=== PATIENT | female | born 1960 | race Caucasian/White ===

== ENCOUNTER 2017-10-27 19:42 | Emergency (ER) | payer BC, OTHER ==
[~2017-10-27] VITALS: Ht 160 cm; Wt 58.7 kg
[~2017-10-27 19:42] MED LIST: AMBIEN10 MG PO; DEXILANT60 MG PO; METOPROLOL PO; PROBIOTIC PO; SINGULAIR10 MG PO; TRAZODONE HCL50 MG PO; TYLENOL EXTRA500 MG PO; WELLBUTRIN XL300 MG PO; XANAX0.25 MG PO
[2017-10-27] MEDS ORDERED: SODIUM CHLORIDE 0.9% 1000 ML BAG IV STA (20:15)
[2017-10-27] MEDS ORDERED: KETOROLAC TROMETHAMINE 30 MG/ML VIAL IV STA (20:16)
--- NOTE | 2017-10-27 21:38 | Diagnostic Imaging Report ---
EXAM: CT ABD/PEL WITH CONTRAST-HOPD DATE: 10/27/2017 12:00 AM INDICATION: Left lower abdominal pain COMPARISON: None TECHNIQUE: The abdomen and pelvis were scanned using a multidetector helical scanner. Coronal and sagittal reformations were obtained. IV Contrast: 100 ml Isovue 300/370 FINDINGS: LOWER THORAX: No consolidations LIVER/BILIARY: No masses. No ductal dilatation. GALLBLADDER: Unremarkable SPLEEN: Incidental calcified granulomas. PANCREAS: Unremarkable ADRENALS: No nodules KIDNEYS: Multifocal left renal scarring. No hydronephrosis. GI TRACT: Diverticulosis with mild inflammatory changes about the proximal sigmoid colon. Moderate stool burden. Clips in the right lower quadrant likely from prior appendectomy. VESSELS: Unremarkable PERITONEUM/RETROPERITONEUM: No free air or fluid LYMPH NODES: Prominent inguinal lymph nodes, likely reactive. REPRODUCTIVE ORGANS/BLADDER: Hysterectomy. Unremarkable bladder. SOFT TISSUES: Unremarkable BONES: No suspicious bone lesions. IMPRESSION: Acute uncomplicated sigmoid diverticulitis. Signed by: Dr Sneha Louis MD on 10/27/2017 9:34 PM
[2017-10-27 22:17] VITALS: BP 120/70
[2017-10-28] MEDS ORDERED: OLANZAPINE2.5 MG PO (11:05)
[2017-10-28] MEDS ORDERED: LEVOFLOXACIN750 MG PO (11:05)
[2017-10-28] MEDS ORDERED: ZOLPIDEM TARTRAT5 MG PO (11:05)
[2017-10-28] MEDS ORDERED: LAMOTRIGINE200 MG PO (11:05)
[2017-10-28] MEDS ORDERED: METRONIDAZOLE500 MG PO (11:05)
[2017-10-28] MEDS ORDERED: SERTRALINE HCL100 MG PO (11:05)
[2017-10-28] MEDS ORDERED: ALPRAZOLAM0.25 MG PO (11:05)
== END 2017-10-27 22:19 | disposition home or self-care (01) ==
LOC: FSED 19:42
DX: R10.32 Left lower quadrant pain (principal); K57.32 Diverticulitis of large intestine without perforation or abscess without bleeding; F32.9 Major depressive disorder, single episode, unspecified
CPT/HCPCS: 74177; 80053; 80307; 81003; 85025; 99283; J1885; J7030

== ENCOUNTER → 2020-02-15 | Day surgery (SDC) | payer BC, OTHER ==
[2020-02-12 08:36] LABS: BASOPHILS # (AUTO) 0.1 (0.0-0.1); EOSINOPHILS # (AUTO) 0.1 (0.0-0.4); EOSINOPHILS % 2.7 % (0.0-6.0); HEMATOCRIT 40.5 % (34.2-44.1); HEMOGLOBIN 13.1 g/dL (12.0-16.0); LYMPHOCYTES # (AUTO) 1.8 (1.0-3.2); LYMPHOCYTES % 34.8 % (18.0-39.1); MEAN CORPUSCULAR HEMOGLOBIN 29.6 pg (28-32); MEAN CORPUSCULAR HGB CONC 32.3 g/dL (31-35); MEAN CORPUSCULAR VOLUME 91.6 fL (81-99); MONOCYTES # (AUTO) 0.4 (0.2-0.8); MONOCYTES % 7.9 % (4.4-11.3); NEUTROPHILS # (AUTO) 2.8 (2.1-6.9); NEUTROPHILS % 53.2 % (38.7-80.0); PLATELET COUNT 227 x10e3/uL (140-360); RED BLOOD COUNT 4.42 x10e6/uL (3.6-5.1); RED CELL DISTRIBUTION WIDTH 12.8 % (11.7-14.4)
[2020-02-12 09:10] LABS: ANION GAP 15.6 mmol/L (8-16); BLOOD UREA NITROGEN 11 mg/dL (7-26); BUN/CREATININE RATIO 13 (6-25); CALCIUM 9.3 mg/dL (8.4-10.2); CARBON DIOXIDE 25 mmol/L (22-29); CHLORIDE 105 mmol/L (98-107); CREATININE, SERUM 0.82 mg/dL (0.57-1.11); EST GLOMERULAR FILTRATION RATE > 60 ML/MIN (60-); GLUCOSE 88 mg/dL (74-118); POTASSIUM 3.6 mmol/L (3.5-5.1); SODIUM 142 mmol/L (136-145)
[~2020-02-15] MED LIST changes: +ALPRAZOLAM0.25 MG PO; +BUPIVACAINE HCL 0.5% INJ 30 ML VIAL INJ ONE; +DEXAMETHASONE SOD PHOS INJ 4 MG/ML VIAL ONE; +EPHEDRINE SULFATE INJ 50 MG/ML VIAL ONE; +FENTANYL CITRATE/PF 100MCG/2 ML INJ ONE; +LAMOTRIGINE200 MG PO; +LEVOFLOXACIN750 MG PO; +LIDOCAINE HCL 2% LOCAL INJ 5 ML SDV VIAL INJ ONE; +METRONIDAZOLE500 MG PO; +MIDAZOLAM HCL 2 MG/2 ML VIAL ONE; +NEOSTIGMINE 1 MG/ML 10ML VIAL ONE; +OLANZAPINE2.5 MG PO; +ONDANSETRON HCL INJ 2MG/ML 2ML 2 MG/ML VIAL ONE; +PROPOFOL IV EMULSION 10 MG/ML 20 ML VIAL ONE; +SEROQUEL100 MG PO; +SERTRALINE HCL100 MG PO; +SEVOFLURANE INHAL SOLN 250 ML PEN BTL ONE; +WELLBUTRIN SR150 MG PO; +ZOLPIDEM TARTRAT5 MG PO
[2020-02-15] MEDS: CLINDAMYCIN PHOS 900MG/ 50ML 50 ML IV ONE (06:32)
[2020-02-15 09:20] VITALS: BP 110/64
== END | disposition home or self-care (01) ==
LOC: OR 05:33
PROVIDERS: ATTEND Podiatrist Foot Surgery
DX: M20.11 Hallux valgus (acquired), right foot (principal); M54.9 Dorsalgia, unspecified; F41.9 Anxiety disorder, unspecified; Z88.0 Allergy status to penicillin; Z01.810 Encounter for preprocedural cardiovascular examination; Z01.812 Encounter for preprocedural laboratory examination; Z01.818 Encounter for other preprocedural examination; Z20.828 Contact with and (suspected) exposure to other viral communicable diseases
CPT/HCPCS: 36415; 71046; 76000; 80048; 85025; 93005; C1713; J1100; J2001; J2250; J2405; J2710; J3010; U0002

== ENCOUNTER → 2020-06-12 | Day surgery (SDC) | payer BC, OTHER ==
[~2020-06-12] MED LIST changes: -BUPIVACAINE HCL 0.5% INJ 30 ML VIAL INJ ONE; +BUSPIRONE HCL10 MG PO; -DEXAMETHASONE SOD PHOS INJ 4 MG/ML VIAL ONE; -EPHEDRINE SULFATE INJ 50 MG/ML VIAL ONE; +FEROSUL325 MG PO; +HYDROCODON-ACE1 EA11 PO; +HYOSCYAMINE SULFATE 0.5 MG/ML INJ ONE; +LEVOFLOXACIN250 MG PO; +LIALDA1.2 GM PO; -NEOSTIGMINE 1 MG/ML 10ML VIAL ONE; -ONDANSETRON HCL INJ 2MG/ML 2ML 2 MG/ML VIAL ONE; +PANTOPRAZOLE 40 MG 10ML VIAL ONE; -SEVOFLURANE INHAL SOLN 250 ML PEN BTL ONE; +TEMAZEPAM15 MG PO; +VITAMIN B-121000 MCG IM
[2020-06-12 16:18] LABS: WBC,FECAL (FECAL LACTOFERRIN) NEGATIVE (NEGATIVE)
[2020-06-12 16:50] VITALS: BP 118/74
[2020-06-13 08:41] LABS: C DIFFICILE TOXIN A&B AMP PROB NEGATIVE (NEGATIVE)
== END | disposition home or self-care (01) ==
LOC: OR 12:40
PROVIDERS: ATTEND Internal Medicine Gastroenterology
DX: K52.9 Noninfective gastroenteritis and colitis, unspecified (principal); Z86.010 Personal history of colon polyps; K29.70 Gastritis, unspecified, without bleeding; K20.90 Esophagitis, unspecified without bleeding; K57.30 Diverticulosis of large intestine without perforation or abscess without bleeding; K62.89 Other specified diseases of anus and rectum; K21.9 Gastro-esophageal reflux disease without esophagitis; K64.8 Other hemorrhoids; I10 Essential (primary) hypertension; N28.89 Other specified disorders of kidney and ureter; F41.9 Anxiety disorder, unspecified; F32.9 Major depressive disorder, single episode, unspecified; Z88.0 Allergy status to penicillin; Z01.810 Encounter for preprocedural cardiovascular examination; Z01.812 Encounter for preprocedural laboratory examination; Z20.822 Contact with and (suspected) exposure to COVID-19; Z87.19 Personal history of other diseases of the digestive system
CPT/HCPCS: 43239; 45380; 83630; 83993; 87045; 87177; 87328; 87493; 93005; C9113; J1980; J2001; J2250; J2704; J3010; U0002; 45378

== ENCOUNTER 2020-06-13 16:46 | Inpatient (IN) | payer BC, OTHER ==
[~2020-06-13] VITALS: Ht 160 cm; Wt 53.5 kg
[~2020-06-13 16:46] MED LIST changes: -FENTANYL CITRATE/PF 100MCG/2 ML INJ ONE; -FEROSUL325 MG PO; -HYDROCODON-ACE1 EA11 PO; -HYOSCYAMINE SULFATE 0.5 MG/ML INJ ONE; -LEVOFLOXACIN250 MG PO; -LIALDA1.2 GM PO; -LIDOCAINE HCL 2% LOCAL INJ 5 ML SDV VIAL INJ ONE; -MIDAZOLAM HCL 2 MG/2 ML VIAL ONE; -PANTOPRAZOLE 40 MG 10ML VIAL ONE; -PROPOFOL IV EMULSION 10 MG/ML 20 ML VIAL ONE; -VITAMIN B-121000 MCG IM
[2020-06-13] MEDS ORDERED: ONDANSETRON HCL INJ 2MG/ML 2ML 2 MG/ML VIAL IV STA (16:58)
[2020-06-13] MEDS ORDERED: MORPHINE SULFATE INJ 4 MG/ML INJ 1ML IV ONE ×2 (17:00→19:15)
[2020-06-13] MEDS ORDERED: MORPHINE SULFATE INJ 4 MG/ML INJ 1ML ONE ×2 (17:16→19:27)
[2020-06-13] MEDS ORDERED: ONDANSETRON HCL INJ 2MG/ML 2ML 2 MG/ML VIAL ONE (17:16)
[2020-06-13] MEDS ORDERED: SODIUM CHLORIDE 0.9% 1000ML 1,000 ML ONE ×3 (17:16→20:49)
[2020-06-13] MEDS ORDERED: SODIUM CHLORIDE 0.9% 1000ML 1,000 ML IV SCH (18:15)
[2020-06-13 18:35] LABS: BASOPHILS % 0.2 % (0.0-1.0); HEMATOCRIT 31.7 % (34.2-44.1); HEMOGLOBIN 10.3 g/dL (12.0-16.0); LYMPHOCYTES # (AUTO) 1.2 (1.0-3.2); LYMPHOCYTES % 10.1 % (18.0-39.1); MEAN CORPUSCULAR HEMOGLOBIN 29.7 pg (28-32); MEAN CORPUSCULAR HGB CONC 32.5 g/dL (31-35); MEAN CORPUSCULAR VOLUME 91.4 fL (81-99); MONOCYTES # (AUTO) 0.7 (0.2-0.8); MONOCYTES % 5.5 % (4.4-11.3); NEUTROPHILS # (AUTO) 10.3 (2.1-6.9); NEUTROPHILS % 83.6 % (38.7-80.0); PLATELET COUNT 167 x10e3/uL (140-360); RED BLOOD COUNT 3.47 x10e6/uL (3.6-5.1); RED CELL DISTRIBUTION WIDTH 13.2 % (11.7-14.4)
[2020-06-13] MEDS ORDERED: PIPER-TAZ 3.375 GM / NS 50ML IV ONE (19:45)
[2020-06-13] MEDS ORDERED: SODIUM CHLORIDE FLUSH 10 ML SYR INJ PRN (19:45)
[2020-06-13] MEDS ORDERED: LEVOFLOXACIN 500MG/D5W 100ML 100 ML IV ONE ×2 (20:00→20:45)
[2020-06-13] MEDS: SODIUM CHLORIDE 0.9% 1000ML 1,000 ML IV SCH (20:44)
[2020-06-13] MEDS ORDERED: METRONIDAZOLE 500MG/NS 100ML 100 ML IV SCH (22:00)
[2020-06-13] MEDS ORDERED: PIPER-TAZ 3.375 GM / NS 50ML IV SCH (22:00)
[2020-06-13 22:32] VITALS: BP 96/64
[2020-06-13] MEDS: MORPHINE SULFATE INJ 4 MG/ML INJ 1ML IV PRN (22:59)
[2020-06-13] MEDS: ONDANSETRON HCL INJ 2MG/ML 2ML 2 MG/ML VIAL IV PRN (23:28)
[2020-06-14] VITALS (8 sets, daily range): BP systolic 81–118; BP diastolic 52–70
[2020-06-14] MEDS ORDERED: SERTRALINE HCL 100 MG TAB PO STA (00:46)
[2020-06-14] MEDS ORDERED: BUSPIRONE HCL 10 MG TABLET PO STA (01:04)
[2020-06-14] MEDS ORDERED: QUETIAPINE FUMARATE 100 MG TAB PO STA (01:44)
[2020-06-14] MEDS: ONDANSETRON HCL INJ 2MG/ML 2ML 2 MG/ML VIAL IV PRN ×3 (03:05→23:10)
[2020-06-14] MEDS: MORPHINE SULFATE INJ 4 MG/ML INJ 1ML IV PRN ×2 (03:05→08:31)
[2020-06-14] MEDS: SODIUM CHLORIDE 0.9% 1000ML 1,000 ML IV SCH ×3 (03:45→15:27)
[2020-06-14 05:49] LABS: ALANINE AMINOTRANSFERASE 7 IU/L (0-55); ALBUMIN 2.7 g/dL (3.5-5.0); ALBUMIN/GLOBULIN RATIO 1.3 (0.8-2.0); ALKALINE PHOSPHATASE 67 IU/L (40-150); BLOOD UREA NITROGEN 8 mg/dL (7-26); BUN/CREATININE RATIO 11 (6-25); CALCIUM 7.8 mg/dL (8.4-10.2); CARBON DIOXIDE 28 mmol/L (22-29); CHLORIDE 109 mmol/L (98-107); CREATININE, SERUM 0.75 mg/dL (0.57-1.11); EST GLOMERULAR FILTRATION RATE > 60 ML/MIN (60-); GLUCOSE 101 mg/dL (74-118); SODIUM 143 mmol/L (136-145)
[2020-06-14] MEDS: METRONIDAZOLE 500MG/NS 100ML 100 ML IV SCH ×3 (05:58→18:15)
[2020-06-14] MEDS: SERTRALINE HCL 100 MG TAB PO SCH ×2 (07:50→09:20)
[2020-06-14 12:15] LABS: BASOPHILS % 0.3 % (0.0-1.0); EOSINOPHILS % 0.4 % (0.0-6.0); HEMATOCRIT 30.2 % (34.2-44.1); HEMOGLOBIN 9.7 g/dL (12.0-16.0); LYMPHOCYTES # (AUTO) 1.1 (1.0-3.2); LYMPHOCYTES % 11.1 % (18.0-39.1); MEAN CORPUSCULAR HGB CONC 32.1 g/dL (31-35); MEAN CORPUSCULAR VOLUME 93.5 fL (81-99); MONOCYTES # (AUTO) 0.4 (0.2-0.8); MONOCYTES % 4.2 % (4.4-11.3); NEUTROPHILS # (AUTO) 8.1 (2.1-6.9); NEUTROPHILS % 83.5 % (38.7-80.0); PLATELET COUNT 150 x10e3/uL (140-360); RED BLOOD COUNT 3.23 x10e6/uL (3.6-5.1); RED CELL DISTRIBUTION WIDTH 13.2 % (11.7-14.4)
[2020-06-14] MEDS ORDERED: SODIUM CHLORIDE 0.9% 250ML 250 ML ONE (12:36)
[2020-06-14] MEDS ORDERED: SODIUM CHLORIDE 0.9% 250ML 250 ML IV ONE (12:45)
[2020-06-14] MEDS: ACETAMINOPHEN 325 MG TAB PO PRN ×2 (13:04→19:40)
[2020-06-14] MEDS: HYDROMORPHONE 1MG/1ML INJ IV PRN ×3 (15:27→23:35)
[2020-06-14] MEDS: LEVOFLOXACIN 500MG/D5W 100ML 100 ML IV SCH (20:06)
[2020-06-14] MEDS ORDERED: SERTRALINE HCL 100 MG TAB PO SCH (21:00)
[2020-06-14] MEDS ORDERED: BUSPIRONE HCL 10 MG TABLET PO SCH (21:00)
[2020-06-14] MEDS: BUSPIRONE HCL 10 MG TABLET PO SCH (22:02)
[2020-06-14] MEDS: QUETIAPINE FUMARATE 100 MG TAB PO SCH (22:02)
[2020-06-15] VITALS (8 sets, daily range): BP systolic 88–134; BP diastolic 59–85
[2020-06-15] MEDS: METRONIDAZOLE 500MG/NS 100ML 100 ML IV SCH ×5 (00:28→23:44)
[2020-06-15] MEDS ORDERED: CHLORDIAZEPOXIDE/CLIDINIUM 1 CAP PO STA (01:28)
[2020-06-15] MEDS: SODIUM CHLORIDE 0.9% 1000ML 1,000 ML IV SCH ×4 (02:29→23:44)
[2020-06-15] MEDS: ONDANSETRON HCL INJ 2MG/ML 2ML 2 MG/ML VIAL IV PRN ×3 (03:07→17:12)
[2020-06-15] MEDS: HYDROMORPHONE 1MG/1ML INJ IV PRN ×3 (03:07→22:28)
[2020-06-15 07:03] LABS: BASOPHILS % 0.4 % (0.0-1.0); EOSINOPHILS # (AUTO) 0.3 (0.0-0.4); EOSINOPHILS % 6.6 % (0.0-6.0); HEMATOCRIT 29.9 % (34.2-44.1); HEMOGLOBIN 9.6 g/dL (12.0-16.0); LYMPHOCYTES % 21.2 % (18.0-39.1); MEAN CORPUSCULAR HGB CONC 32.1 g/dL (31-35); MEAN CORPUSCULAR VOLUME 93.4 fL (81-99); MONOCYTES # (AUTO) 0.3 (0.2-0.8); MONOCYTES % 5.3 % (4.4-11.3); NEUTROPHILS # (AUTO) 3.1 (2.1-6.9); NEUTROPHILS % 66.1 % (38.7-80.0); PLATELET COUNT 151 x10e3/uL (140-360)
[2020-06-15 07:31] LABS: ALANINE AMINOTRANSFERASE 7 IU/L (0-55); ALBUMIN 2.4 g/dL (3.5-5.0); ALBUMIN/GLOBULIN RATIO 1.2 (0.8-2.0); ALKALINE PHOSPHATASE 64 IU/L (40-150); ANION GAP 9.2 mmol/L (8-16); BLOOD UREA NITROGEN 6 mg/dL (7-26); BUN/CREATININE RATIO 8 (6-25); CALCIUM 7.3 mg/dL (8.4-10.2); CARBON DIOXIDE 24 mmol/L (22-29); CHLORIDE 113 mmol/L (98-107); CREATININE, SERUM 0.72 mg/dL (0.57-1.11); EST GLOMERULAR FILTRATION RATE > 60 ML/MIN (60-); GLUCOSE 96 mg/dL (74-118); POTASSIUM 3.2 mmol/L (3.5-5.1); SODIUM 143 mmol/L (136-145)
[2020-06-15] MEDS: SERTRALINE HCL 100 MG TAB PO SCH (08:49)
[2020-06-15] MEDS: CHLORDIAZEPOXIDE/CLIDINIUM 1 CAP PO SCH ×4 (08:49→21:39)
[2020-06-15 09:22] LABS: % IRON SATURATION 18 % (15-50); IRON 30 ug/dL (50-170); TOTAL IRON BINDING CAPACITY 164 ug/dL (261-478); TRANSFERRIN 117 mg/dL (180-382)
[2020-06-15] MEDS ORDERED: POTASSIUM CHLORIDE 10MEQ EA PO ONE ×2 (11:45→13:30)
[2020-06-15] MEDS ORDERED: FERROUS SULFATE 325 MG TAB PO SCH (13:00)
[2020-06-15] MEDS ORDERED: CYANOCOBALAMIN INJ 1,000 MCG/ML VIAL IM ONE (13:00)
[2020-06-15] MEDS ORDERED: ALPRAZOLAM 0.25 MG TAB PO PRN (16:15)
[2020-06-15] MEDS: BUSPIRONE HCL 10 MG TABLET PO SCH (21:39)
[2020-06-15] MEDS: LEVOFLOXACIN 500MG/D5W 100ML 100 ML IV SCH (21:39)
[2020-06-15] MEDS: QUETIAPINE FUMARATE 100 MG TAB PO SCH (21:39)
[2020-06-15] MEDS: TEMAZEPAM 15 MG CAP PO SCH (21:39)
[2020-06-16] VITALS (8 sets, daily range): BP systolic 107–132; BP diastolic 70–81
[2020-06-16 05:59] LABS: BASOPHILS % 0.8 % (0.0-1.0); EOSINOPHILS # (AUTO) 0.3 (0.0-0.4); EOSINOPHILS % 7.2 % (0.0-6.0); HEMATOCRIT 30.4 % (34.2-44.1); LYMPHOCYTES # (AUTO) 1.1 (1.0-3.2); LYMPHOCYTES % 29.5 % (18.0-39.1); MEAN CORPUSCULAR HEMOGLOBIN 30.3 pg (28-32); MEAN CORPUSCULAR HGB CONC 32.9 g/dL (31-35); MEAN CORPUSCULAR VOLUME 92.1 fL (81-99); MONOCYTES # (AUTO) 0.2 (0.2-0.8); MONOCYTES % 6.2 % (4.4-11.3); NEUTROPHILS # (AUTO) 2.2 (2.1-6.9); NEUTROPHILS % 55.8 % (38.7-80.0); PLATELET COUNT 187 x10e3/uL (140-360)
[2020-06-16] MEDS: SODIUM CHLORIDE 0.9% 1000ML 1,000 ML IV SCH ×4 (06:23→19:57)
[2020-06-16] MEDS: METRONIDAZOLE 500MG/NS 100ML 100 ML IV SCH ×3 (06:23→17:12)
[2020-06-16] MEDS: MESALAMINE 400 MG CAP PO SCH ×3 (06:23→22:13)
[2020-06-16 06:48] LABS: ALBUMIN 2.5 g/dL (3.5-5.0); ALBUMIN/GLOBULIN RATIO 1.2 (0.8-2.0); ALKALINE PHOSPHATASE 64 IU/L (40-150); ANION GAP 10.6 mmol/L (8-16); CALCIUM 7.8 mg/dL (8.4-10.2); CARBON DIOXIDE 25 mmol/L (22-29); CHLORIDE 114 mmol/L (98-107); CREATININE, SERUM 0.75 mg/dL (0.57-1.11); GLUCOSE 90 mg/dL (74-118); POTASSIUM 4.6 mmol/L (3.5-5.1); SODIUM 145 mmol/L (136-145)
[2020-06-16 07:10] LABS: BUN/CREATININE RATIO 7 (6-25)
[2020-06-16 07:11] LABS: EST GLOMERULAR FILTRATION RATE > 60 ML/MIN (60-)
[2020-06-16 07:12] LABS: ALANINE AMINOTRANSFERASE < 6 IU/L (0-55); BLOOD UREA NITROGEN < 5 mg/dL (7-26)
[2020-06-16] MEDS: CYANOCOBALAMIN INJ 1,000 MCG/ML VIAL IM SCH (08:18)
[2020-06-16] MEDS: CHLORDIAZEPOXIDE/CLIDINIUM 1 CAP PO SCH ×4 (08:18→20:19)
[2020-06-16] MEDS: SERTRALINE HCL 100 MG TAB PO SCH (08:18)
[2020-06-16] MEDS: HYDROMORPHONE 1MG/1ML INJ IV PRN ×3 (08:52→21:34)
[2020-06-16] MEDS: ONDANSETRON HCL INJ 2MG/ML 2ML 2 MG/ML VIAL IV PRN ×3 (08:52→20:15)
[2020-06-16] MEDS ORDERED: ALPRAZOLAM 0.25 MG TAB PO PRN (09:00)
[2020-06-16] MEDS: IRON SUCROSE 100 MG in SODIUM CHLORIDE 0.9% 100 ML 100 ML IV SCH (10:56)
[2020-06-16] MEDS: BUSPIRONE HCL 10 MG TABLET PO SCH (20:19)
[2020-06-16] MEDS: TEMAZEPAM 15 MG CAP PO SCH (20:19)
[2020-06-16] MEDS: QUETIAPINE FUMARATE 100 MG TAB PO SCH (20:19)
[2020-06-16] MEDS: LEVOFLOXACIN 500MG/D5W 100ML 100 ML IV SCH (21:35)
[2020-06-17] VITALS: BP 95/63
[2020-06-17] MEDS: HYDROMORPHONE 1MG/1ML INJ IV PRN ×2 (00:32→05:27)
[2020-06-17 04:00] VITALS: BP 89/61
[2020-06-17 05:16] VITALS: BP 116/73
[2020-06-17] MEDS: METRONIDAZOLE 500MG/NS 100ML 100 ML IV SCH ×2 (05:27)
[2020-06-17] MEDS: MESALAMINE 400 MG CAP PO SCH (05:27)
[2020-06-17] MEDS: SODIUM CHLORIDE 0.9% 1000ML 1,000 ML IV SCH (05:27)
[2020-06-17 05:33] LABS: BASOPHILS % 0.8 % (0.0-1.0); EOSINOPHILS # (AUTO) 0.2 (0.0-0.4); EOSINOPHILS % 6.1 % (0.0-6.0); HEMATOCRIT 31.6 % (34.2-44.1); HEMOGLOBIN 10.6 g/dL (12.0-16.0); LYMPHOCYTES # (AUTO) 1.2 (1.0-3.2); LYMPHOCYTES % 32.4 % (18.0-39.1); MEAN CORPUSCULAR HEMOGLOBIN 30.6 pg (28-32); MEAN CORPUSCULAR HGB CONC 33.5 g/dL (31-35); MEAN CORPUSCULAR VOLUME 91.3 fL (81-99); MONOCYTES # (AUTO) 0.2 (0.2-0.8); MONOCYTES % 6.7 % (4.4-11.3); NEUTROPHILS # (AUTO) 1.9 (2.1-6.9); NEUTROPHILS % 53.4 % (38.7-80.0); PLATELET COUNT 186 x10e3/uL (140-360); RED BLOOD COUNT 3.46 x10e6/uL (3.6-5.1)
[2020-06-17] MEDS: ONDANSETRON HCL INJ 2MG/ML 2ML 2 MG/ML VIAL IV PRN (05:35)
[2020-06-17 05:52] LABS: ANION GAP 9.7 mmol/L (8-16); BLOOD UREA NITROGEN < 5 mg/dL (7-26); CALCIUM 7.6 mg/dL (8.4-10.2); CARBON DIOXIDE 25 mmol/L (22-29); CHLORIDE 113 mmol/L (98-107); CREATININE, SERUM 0.74 mg/dL (0.57-1.11); EST GLOMERULAR FILTRATION RATE > 60 ML/MIN (60-); GLUCOSE 92 mg/dL (74-118); MAGNESIUM 1.5 MG/DL (1.3-2.1); POTASSIUM 3.7 mmol/L (3.5-5.1); SODIUM 144 mmol/L (136-145)
[2020-06-17 05:54] LABS: BUN/CREATININE RATIO 7 (6-25)
[2020-06-17 07:52] VITALS: BP 97/67
[2020-06-17 08:19] VITALS: BP 97/67
[2020-06-17] MEDS: CYANOCOBALAMIN INJ 1,000 MCG/ML VIAL IM SCH (08:57)
[2020-06-17] MEDS: CHLORDIAZEPOXIDE/CLIDINIUM 1 CAP PO SCH (08:57)
[2020-06-17] MEDS: SERTRALINE HCL 100 MG TAB PO SCH (08:57)
[2020-06-17] MEDS: IRON SUCROSE 100 MG in SODIUM CHLORIDE 0.9% 100 ML 100 ML IV SCH (08:58)
[2020-06-17] MEDS ORDERED: HYDROCODON-ACE1 EA11 PO (10:50)
[2020-06-17] MEDS ORDERED: VITAMIN B-121000 MCG IM (10:50)
[2020-06-17] MEDS ORDERED: FEROSUL325 MG PO (10:50)
[2020-06-17] MEDS ORDERED: METRONIDAZOLE500 MG PO (10:50)
[2020-06-17] MEDS ORDERED: LEVOFLOXACIN250 MG PO (10:50)
[2020-06-17] MEDS ORDERED: LIALDA1.2 GM PO (11:10)
[2020-06-17 11:39] VITALS: BP 107/79
== END 2020-06-17 12:01 | disposition home or self-care (01) | DRG 392 ==
LOC: FSED 16:59 → ERHOLD 19:42 → MED/SURG2 22:13
PROVIDERS: ADMIT Internal Medicine; ATTEND Internal Medicine
DX: K52.9 Noninfective gastroenteritis and colitis, unspecified (principal); K57.92 Diverticulitis of intestine, part unspecified, without perforation or abscess without bleeding; F41.8 Other specified anxiety disorders; Z20.822 Contact with and (suspected) exposure to COVID-19; F31.9 Bipolar disorder, unspecified; G47.00 Insomnia, unspecified; D63.8 Anemia in other chronic diseases classified elsewhere; F41.9 Anxiety disorder, unspecified
CPT/HCPCS: 36415; 74176; 80048; 80053; 82270; 82607; 82746; 83540; 83630; 83735; 83993; 84466; 85025; 85045; 86140; 87045; 87177; 87493; 96361; 99284; J1170; J1756; J1956; J2270; J2405; J3420; J7030; J7050

== ENCOUNTER 2021-05-13 16:24 | Observation (INO) | payer BC, OTHER ==
[~2021-05-13] VITALS: Ht 160 cm; Wt 56.2 kg
[~2021-05-13 16:24] MED LIST changes: +FEROSUL325 MG PO; +HYDROCODON-ACE1 EA11 PO; +LEVOFLOXACIN250 MG PO; +LIALDA1.2 GM PO; +VITAMIN B-121000 MCG IM
[2021-05-13] MEDS ORDERED: SODIUM CHLORIDE 0.9% 1000ML 1,000 ML IV STA (16:37)
[2021-05-13] MEDS ORDERED: SODIUM CHLORIDE 0.9% 50ML 50 ML ONE (16:57)
[2021-05-13] MEDS ORDERED: IOPAMIDOL 370 MG/ML 200 ML INFUS..BTL INJ ONE (16:57)
[2021-05-13] MEDS ORDERED: KETOROLAC TROMETHAMINE 30 MG/ML VIAL IV ONE (17:00)
[2021-05-13] MEDS ORDERED: HYDROCODONE/APAP 5MG-325MG TAB PO ONE (17:00)
[2021-05-13] MEDS ORDERED: ONDANSETRON HCL INJ 2MG/ML 2ML 2 MG/ML VIAL IV ONE (17:00)
[2021-05-13] MEDS ORDERED: KETOROLAC TROMETHAMINE 30 MG/ML VIAL ONE (17:10)
[2021-05-13] MEDS ORDERED: ONDANSETRON HCL INJ 2MG/ML 2ML 2 MG/ML VIAL ONE (17:10)
[2021-05-13] MEDS ORDERED: SODIUM CHLORIDE 0.9% 1000ML 1,000 ML ONE (17:25)
[2021-05-13] MEDS ORDERED: Morphine 4mg Syringe 4 MG/ML INJ IV STA (18:52)
[2021-05-13] MEDS ORDERED: ZOLPIDEM TARTRATE 10 MG TAB PO PRN (19:00)
[2021-05-13] MEDS ORDERED: HYDROCODONE/APAP 7.5MG-325MG 1 EA TAB PO PRN (19:00)
[2021-05-13] MEDS ORDERED: DIPHENHYDRAMINE HCL INJ 50 MG/ML VIAL IV PRN (19:00)
[2021-05-13] MEDS ORDERED: ONDANSETRON HCL INJ 2MG/ML 2ML 2 MG/ML VIAL IV PRN (19:00)
[2021-05-13] MEDS: LEVOFLOXACIN 500MG/D5W 100ML IV SCH (19:10)
[2021-05-13] MEDS: SODIUM CHLORIDE 0.9% 1000ML 1,000 ML IV SCH ×2 (19:41→21:29)
[2021-05-13 20:19] VITALS: BP 135/79
[2021-05-13] MEDS: METRONIDAZOLE 500MG/NS 100ML 100 ML IV SCH (21:29)
[2021-05-13 21:30] VITALS: BP 135/79
[2021-05-13] MEDS: HYDROMORPHONE 1MG/1ML INJ IV PRN (23:09)
[2021-05-14] VITALS (8 sets, daily range): BP systolic 93–123; BP diastolic 47–66
[2021-05-14] MEDS ORDERED: METRONIDAZOLE 500MG/NS 100ML IV SCH
[2021-05-14] MEDS: METRONIDAZOLE 500MG/NS 100ML 100 ML IV SCH ×4 (02:57→21:00)
[2021-05-14] MEDS: SERTRALINE HCL 100 MG TAB PO SCH (06:29)
[2021-05-14 06:55] LABS: BASOPHILS % 0.7 % (0.0-1.0); EOSINOPHILS # (AUTO) 0.1 (0.0-0.4); EOSINOPHILS % 2.5 % (0.0-6.0); HEMATOCRIT 38.8 % (34.2-44.1); HEMOGLOBIN 11.9 g/dL (12.0-16.0); LYMPHOCYTES # (AUTO) 1.2 (1.0-3.2); LYMPHOCYTES % 29.4 % (18.0-39.1); MEAN CORPUSCULAR HEMOGLOBIN 29.8 pg (28-32); MEAN CORPUSCULAR HGB CONC 30.7 g/dL (31-35); MEAN CORPUSCULAR VOLUME 97.2 fL (81-99); MONOCYTES # (AUTO) 0.4 (0.2-0.8); MONOCYTES % 9.7 % (4.4-11.3); NEUTROPHILS # (AUTO) 2.3 (2.1-6.9); NEUTROPHILS % 57.2 % (38.7-80.0); PLATELET COUNT 160 x10e3/uL (140-360); RED BLOOD COUNT 3.99 x10e6/uL (3.6-5.1); RED CELL DISTRIBUTION WIDTH 11.9 % (11.7-14.4)
[2021-05-14 07:06] LABS: ANION GAP 8.8 mmol/L (8-16); CALCIUM 8.4 mg/dL (8.4-10.2); CREATININE, SERUM 0.73 mg/dL (0.57-1.11); POTASSIUM 3.8 mmol/L (3.5-5.1)
[2021-05-14] MEDS: HYDROMORPHONE 1MG/1ML INJ IV PRN ×3 (07:32→22:36)
[2021-05-14] MEDS: FAMOTIDINE 20 MG TAB PO SCH ×2 (08:37→16:10)
[2021-05-14] MEDS ORDERED: LORAZEPAM 1 MG TAB PO PRN (09:45)
[2021-05-14] MEDS: ALPRAZOLAM 0.25 MG TAB PO PRN (11:40)
[2021-05-14] MEDS: SODIUM CHLORIDE 0.9% 1000ML 1,000 ML IV SCH ×2 (11:48→21:00)
[2021-05-14] MEDS: LEVOFLOXACIN 500MG/D5W 100ML IV SCH (19:56)
[2021-05-14] MEDS: BUSPIRONE HCL 10 MG TABLET PO SCH (21:00)
[2021-05-14] MEDS ORDERED: TEMAZEPAM 15 MG CAP PO SCH ×3 (21:00)
[2021-05-14] MEDS: QUETIAPINE FUMARATE 100 MG TAB PO SCH (21:00)
[2021-05-14 22:58] LABS: % IRON SATURATION 34 % (15-50); IRON 71 ug/dL (50-170); TOTAL IRON BINDING CAPACITY 206 ug/dL (261-478); TRANSFERRIN 147 mg/dL (180-382)
[2021-05-15 00:42] VITALS: BP 103/54
[2021-05-15] MEDS: METRONIDAZOLE 500MG/NS 100ML 100 ML IV SCH ×3 (01:49→14:28)
[2021-05-15] MEDS ORDERED: ONDANSETRON HCL INJ 2MG/ML 2ML 2 MG/ML VIAL IV PRN (03:00)
[2021-05-15 05:07] VITALS: BP 100/62
[2021-05-15] MEDS: SERTRALINE HCL 100 MG TAB PO SCH (05:16)
[2021-05-15 05:31] LABS: BASOPHILS % 0.5 % (0.0-1.0); EOSINOPHILS # (AUTO) 0.1 (0.0-0.4); HEMATOCRIT 34.4 % (34.2-44.1); HEMOGLOBIN 11.5 g/dL (12.0-16.0); LYMPHOCYTES # (AUTO) 1.2 (1.0-3.2); LYMPHOCYTES % 29.7 % (18.0-39.1); MEAN CORPUSCULAR HEMOGLOBIN 29.8 pg (28-32); MEAN CORPUSCULAR HGB CONC 33.4 g/dL (31-35); MEAN CORPUSCULAR VOLUME 89.1 fL (81-99); MONOCYTES # (AUTO) 0.4 (0.2-0.8); MONOCYTES % 9.2 % (4.4-11.3); NEUTROPHILS # (AUTO) 2.4 (2.1-6.9); NEUTROPHILS % 58.4 % (38.7-80.0); PLATELET COUNT 177 x10e3/uL (140-360); RED BLOOD COUNT 3.86 x10e6/uL (3.6-5.1); RED CELL DISTRIBUTION WIDTH 11.9 % (11.7-14.4)
[2021-05-15 05:43] LABS: ALBUMIN 3.1 g/dL (3.5-5.0); ALBUMIN/GLOBULIN RATIO 1.5 (0.8-2.0); ALKALINE PHOSPHATASE 41 IU/L (40-150); ANION GAP 8.5 mmol/L (8-16); BLOOD UREA NITROGEN < 5 mg/dL (7-26); CALCIUM 8.4 mg/dL (8.4-10.2); CARBON DIOXIDE 25 mmol/L (22-29); CHLORIDE 109 mmol/L (98-107); CREATININE, SERUM 0.63 mg/dL (0.57-1.11); EST GLOMERULAR FILTRATION RATE 96 ML/MIN (60-); GLUCOSE 88 mg/dL (74-118); MAGNESIUM 1.6 MG/DL (1.3-2.1); POTASSIUM 3.5 mmol/L (3.5-5.1); SODIUM 139 mmol/L (136-145)
[2021-05-15 05:45] LABS: BUN/CREATININE RATIO 8 (6-25)
[2021-05-15 05:46] LABS: ALANINE AMINOTRANSFERASE < 6 IU/L (0-55)
[2021-05-15 08:00] VITALS: BP 117/66
[2021-05-15 08:18] VITALS: BP 117/66
[2021-05-15] MEDS ORDERED: FERROUS SULFATE 325 MG TAB PO SCH (09:00)
[2021-05-15] MEDS ORDERED: CYANOCOBALAMIN 1,000 MCG TAB PO SCH (09:00)
[2021-05-15] MEDS ORDERED: METOCLOPRAMIDE HCL 10 MG/2ML VIAL IV PRN (09:30)
[2021-05-15] MEDS: FAMOTIDINE 20 MG TAB PO SCH (09:34)
[2021-05-15] MEDS: ALPRAZOLAM 0.25 MG TAB PO PRN (10:29)
[2021-05-15] MEDS: SODIUM CHLORIDE 0.9% 1000ML 1,000 ML IV SCH (11:00)
[2021-05-15 11:53] VITALS: BP 118/71
[2021-05-15] MEDS ORDERED: METRONIDAZOLE500 MG PO (14:43)
[2021-05-15] MEDS ORDERED: REGLAN5 MG PO (14:43)
[2021-05-15] MEDS ORDERED: ONDANSETRON ODT4 MG PO (14:43)
[2021-05-15] MEDS ORDERED: LEVOFLOXACIN750 MG PO (15:14)
== END 2021-05-15 15:42 | disposition home or self-care (01) ==
LOC: FSED 16:32 → ERHOLD 18:52 → MED/SURG3 20:12
PROVIDERS: ADMIT Internal Medicine; ATTEND Internal Medicine
DX: K57.32 Diverticulitis of large intestine without perforation or abscess without bleeding (principal); F41.9 Anxiety disorder, unspecified; F32.A Depression, unspecified; F31.9 Bipolar disorder, unspecified; D50.9 Iron deficiency anemia, unspecified; D51.9 Vitamin B12 deficiency anemia, unspecified; Z88.0 Allergy status to penicillin; Z20.822 Contact with and (suspected) exposure to COVID-19
CPT/HCPCS: 36415 ×2; 74177; 80048; 80053 ×2; 81003; 82607; 82746; 83540; 83735 ×2; 84466; 85025 ×3; 85045; 99284; G0378 ×3; J1170 ×2; J1885; J1956 ×2; J2270; J2405 ×3; J2765; J7030 ×2; Q9967; U0002